=== PATIENT | male | born 2000 ===

== ENCOUNTER 2022-07-13 08:18 | Outpatient (CLI) | payer OTHER, SELFPAY ==
[2022-07-13 08:40] LABS: Viscosity Semen Normal; Volume Semen 2.5 mL (2-5)
[2022-07-13 08:41] LABS: Epithelial Count Semen 0-4 /hpf; Red Blood Count Semen 0-4 /hpf; Sperm Immotility 10 % (50-60)
[2022-07-13 08:42] LABS: Sperm Non-Progressive Motility 20 % (5-10); Sperm Progressive Motility 70 % (31-34)
[2022-07-13 09:46] LABS: Sperm Count 4.6 mill/mL (40-160)
== END 2022-07-13 08:19 | disposition home or self-care (01) ==
PROVIDERS: Family Provider Family Medicine; PCP Family Medicine; Visit Provider Family Medicine
DX: Z31.69 Encounter for other general counseling and advice on procreation (principal)
CPT/HCPCS: 80503; 89320

== ENCOUNTER 2022-07-18 08:34 | Outpatient (CLI) | payer OTHER, SELFPAY ==
[2022-07-18 10:59] LABS: Side 1 12; Side 2 13; Sperm Count 12.5 mill/mL (40-160); Viscosity Semen Droplets; Volume Semen 4.8 mL (2-5)
[2022-07-18 11:00] LABS: Pathology Referral Yes; Sperm Immotility 35 % (50-60); Sperm Non-Progressive Motility 0 % (5-10); Sperm Progressive Motility 65 % (31-34)
== END 2022-07-18 08:35 | disposition home or self-care (01) ==
LOC: LAB 08:38
PROVIDERS: Family Provider Family Medicine; PCP Family Medicine; Visit Provider Family Medicine
DX: Z31.69 Encounter for other general counseling and advice on procreation (principal)
CPT/HCPCS: 80503; 89320